=== PATIENT | male | born 1980 | race Caucasian/White ===

== ENCOUNTER 2016-11-07 09:22 | Emergency (ER) | payer MEDICAID ==
[2016-11-07 09:27] VITALS: BP 139/97; PULSE 113; RESP 18; TEMP 98.1; O2SAT 98
[2016-11-07] MEDS ORDERED: SULFAMETHOX/TMP 800/160 MG 1 TAB PO ONE (09:40)
[2016-11-07] MEDS ORDERED: AMOXICILLIN/CLAVULANATE POT 875/125 MG TAB PO ONE (09:41)
[2016-11-07] MEDS ORDERED: IBUPROFEN 600 MG TAB PO ONE (09:41)
--- NOTE | 2016-11-07 09:45 | EDPHY ---
H & P Time Seen by Provider: 11/07/16 09:30 HPI/ROS: HPI Right middle finger pain. 36-year-old male by private vehicle. He is right-hand dominant. He reports pain and swelling to the distal aspect of his right middle finger ongoing for the last 2-3 days. No history of traumatic injury. He has not had a fever. ROS: Constitutional: No fever, no chills. No weakness. Musculoskeletal: As above. Skin: No rashes. As above. Neurological: No focal weakness or altered sensation. Past medical history: Raynaud's syndrome. Social history: Here by himself. Physical Exam: General Appearance: Alert, no distress. This patient is responding to questions appropriately and in full sentences. This patient appears well- hydrated and well-nourished. Eyes: Pupils equal and round no pallor or injection. No lid edema, erythema or injection. Right middle finger exam: He has tenderness at the distal tip of the right 3rd digit. There is no fluctuance. The finger pad is soft and mildly swollen. Capillary refill is normal in the digit. Sensation is normal in the digit. No sausage digit. Erythema does not spread proximally from the finger tip. No tenderness on palpation of the flexor aspect of the digit. The middle finger does not appear grossly asymmetric in comparison to his other digits. Neurological: Motor sensory function is grossly intact. Cranial nerves are normal. Gait is normal. Skin: Warm and dry, no rashes. Musculoskeletal: Neck is supple and nontender. Extremities are symmetrical. All joints range without pain or impingement. Psychiatric: No agitation. No depression. Database: EKG: Imaging: Right middle finger x-ray series: Negative for acute fracture, subluxation, dislocation. Interpreted by me. Procedures: Emergency department course: After my evaluation x-rays were obtained. I discussed incision and drainage for possible felon. This patient would not consent to this procedure. Other option of therapy is starting him on antibiotics and then warm Epson salts soaks frequently. He agreed to this. He was started on Bactrim and Augmentin in the emergency department. Results of his x-rays were discussed with him. I discussed the importance of follow-up in 1-2 days for re-evaluation and explained that if his condition was worsening he would most likely require an incision and drainage procedure. Return to emergency department precautions were discussed. All of his questions were answered. He was discharged in good condition. Differential Diagnosis: The differential diagnosis on this patient includes but is not limited to soft tissue infection of the distal finger tip, felon, paronychia. This represents a partial list of diagnoses considered. These considerations are based on history, physical exam, past history, reassessment and diagnostic testing. Smoking Status: Former smoker Constitutional: Initial Vital Signs Temperature (C) 36.7 C 11/07/16 09:23 Heart Rate 113 H 11/07/16 09:23 Respiratory Rate 18 11/07/16 09:23 Blood Pressure 139/97 H 11/07/16 09:23 O2 Sat (%) 98 11/07/16 09:23 O2 Delivery Mode Room Air Allergies/Adverse Reactions: No Known Allergies Allergy (Unverified 11/07/16 09:24) Home Medications: Medication Instructions Recorded Amoxicillin/Clavulanate Pot 875 mg PO BID 7 Days 11/07/16 [Augmentin 875 mg tab] Sulfamethox/Tmp 800/160 mg 1 tab PO BID@1000,2200 #14 tab 11/07/16 [Bactrim Ds] MDM/Departure - MDM Medications Given: Discontinued Medications Amoxicillin/Clavulanate Potassium (Augmentin 875mg) 875 mg PO EDNOW ONE PRN Reason: Protocol Stop: 11/07/16 09:42 Last Admin: 11/07/16 09:59 Dose: 875 mg Ibuprofen (Motrin) 600 mg PO EDNOW ONE Stop: 11/07/16 09:42 Last Admin: 11/07/16 09:59 Dose: 600 mg Trimethoprim/Sulfamethoxazole (Bactrim Ds) 1 ea PO EDNOW ONE PRN Reason: Protocol Stop: 11/07/16 09:41 Last Admin: 11/07/16 10:00 Dose: 1 ea - Depart Disposition: Home, Routine, Self-Care Clinical Impression: Pain of right middle finger, Infection Distal Finger Condition: Good Instructions: Paronychia (ED) Additional Instructions: Read and follow provided instructions. Follow-up with your primary care physician in 1-2 days for re-evaluation as discussed. Take medication as prescribed. Ibuprofen dosin mg every 6 hours with meals for the next 3 days only. You must soak your finger frequently in warm Epsom salt solution. Return to the emergency department for worsening pain, swelling, discoloration or other serious concerns. Prescriptions: Amoxicillin/Clavulanate Pot [Augmentin 875 mg tab] 875 mg PO BID 7 Days Sulfamethox/Tmp 800/160 mg [Bactrim Ds] 1 tab PO BID@1000,2200 #14 tab Referrals: [facility] [Outside] - As per Instructions
--- NOTE | 2016-11-07 10:07 | DX ---
Right Third Finger, Three Views 9:50 a.m. Clinical History: 36-year-old male with right third distal digit pain, and no known trauma. Comparison Study: None. Findings: There is no acute fracture, dislocation, marginal erosion, lytic or blastic lesion, or soft tissue calcification. There is no joint malalignment. There is an old healed boxer's fracture associ ated with the fifth metacarpal with a residual angular deformity. There is also an old unfused ulnar styloid avulsion fracture with positive ulnar variance. Impression: 1. There is no acute osseous abnormality relative to the third digit. 2. Old healed boxer's fracture. 3. Old ulnar styloid avulsion fracture with positive ulnar variance.
== END 2016-11-07 10:18 | disposition home or self-care (01) ==
DX: M79.644 Pain in right finger(s) (principal); L08.9 Local infection of the skin and subcutaneous tissue, unspecified; Z87.891 Personal history of nicotine dependence